=== PATIENT | female | born 1950 | race Two or more races ===

== ENCOUNTER 2021-09-11 20:42 | Inpatient (IN) | payer OTHER ==
[~2021-09-11] VITALS: Ht 172.7 cm; Wt 79.1 kg
[2021-09-11] MEDS ORDERED: MORPHINE SULFATE 4 MG/ML SYR/VIAL IV ONE (22:45)
[2021-09-11 23:49] LABS: Basophils # (auto) 0 10 ^3/uL (0-0.2); Eosinophils # (auto) 0.3 10 ^3/uL (0-0.8); Neutrophils # (auto) 3.6 10 ^3/uL (1.6-8.6)
[2021-09-11 23:51] LABS: Basophils % (auto) 0.5 % (0.0-2.0); Eosinophils % (auto) 4.5 % (0.0-7.0); Hematocrit 32.8 % (36.0-46.0); Hemoglobin 10.9 g/dL (12.2-16.2); Lymphocytes % (auto) 39.7 % (10.0-50.0); Mean Corpuscular Hgb Conc. 33.4 g/dL (32.0-36.0); Mean Corpuscular Volume 80.8 fL (80.0-100.0); Monocytes # (auto) 0.5 10 ^3/uL (0-1.3); Monocytes % (auto) 7.1 % (0.0-12.0); Neutrophils % (auto) 48.2 % (37.0-80.0); Nucleated Red Blood Cells % 0.1 %; Red Blood Cells 4.05 10^6/uL (4.0-5.20); Red Cell Distribution Width 15.8 % (11.8-14.3); White Blood Cell 7.5 10^3/uL (4.4-10.8)
[2021-09-12 00:08] LABS: Albumin 2.8 g/dL (3.4-5.0); BUN/Creatinine Ratio 31.5; Calcium 9.1 mg/dL (8.5-10.1)
[2021-09-12 00:13] LABS: Bilirubin, Total 0.2 mg/dL (0.2-1.0); Total Protein 6.5 g/dL (6.4-8.2)
[2021-09-12] MEDS ORDERED: MORPHINE SULFATE INJECTION 2 MG/ML SYRG IV PRN (05:00)
[2021-09-12] MEDS ORDERED: NITROGLYCERIN 0.4 MG SL TAB SL PRN (05:00)
[2021-09-12] MEDS: SODIUM CHLORIDE 0.9% 1,000 ML IV SCH ×2 (05:28→22:24)
[2021-09-12] MEDS ORDERED: DEXTROSE (50%) 50ML SYRG IV PRN (07:45)
[2021-09-12 08:00] VITALS: BP 130/58
[2021-09-12] MEDS ORDERED: METO25TA93 PO (08:25)
[2021-09-12] MEDS ORDERED: INSLISPI SC (08:27)
[2021-09-12] MEDS ORDERED: ATOR10TA PO (08:28)
[2021-09-12] MEDS ORDERED: INSLANTI SC (08:29)
[2021-09-12] MEDS ORDERED: ENOXAPARIN SOD 40 MG/0.4 ML SYRINGE SC SCH (10:00)
[2021-09-12] MEDS: ACCU-CHEK COMFORT CURVE STRIP VI SCH ×3 (11:47→22:29)
[2021-09-12 12:00] VITALS: BP_SYST 110; BP_SYST 127; BP_SYST 97; BP_DIAS 50; BP_DIAS 60; BP_DIAS 67
[2021-09-12] MEDS: InsuLIN REG 1unit/0.01ml Soln (100units/ml) SC SCH ×2 (12:05→17:35)
[2021-09-12 16:00] VITALS: BP 121/56
[2021-09-12 19:35] VITALS: BP 139/66
[2021-09-12] MEDS ORDERED: LORazepam 2MG/ML-1ML VIAL IV PRN (20:00)
[2021-09-12 21:12] VITALS: BP 119/50
[2021-09-12] MEDS ORDERED: INSULIN LANTUS (GLARGINE) 1 /0.01ml (100units/ml) SC SCH ×2 (22:00)
[2021-09-12] MEDS ORDERED: ATORVASTATIN 20 MG TAB PO SCH (22:00)
[2021-09-12] MEDS ORDERED: InsuLIN REG 1unit/0.01ml Soln (100units/ml) SC SCH (22:00)
[2021-09-12] MEDS: ENOXAPARIN SOD 80 MG/0.8ML SYRINGE SC SCH (22:30)
[2021-09-13] VITALS (12 sets, daily range): BP systolic 101–145; BP diastolic 42–63
[2021-09-13 05:58] LABS: Basophils # (auto) 0 10 ^3/uL (0-0.2); Eosinophils # (auto) 0.3 10 ^3/uL (0-0.8); Hemoglobin 10.8 g/dL (12.2-16.2); Lymphocytes # (auto) 2.1 10 ^3/uL (0.4-5.4); Mean Corpuscular Hemoglobin 26.6 pg (28.0-32.0); Monocytes # (auto) 0.4 10 ^3/uL (0-1.3); Nucleated Red Blood Cells % 0.1 %; Red Blood Cells 4.06 10^6/uL (4.0-5.20)
[2021-09-13 06:00] LABS: Basophils % (auto) 0.5 % (0.0-2.0); Eosinophils % (auto) 5.9 % (0.0-7.0); Hematocrit 32.5 % (36.0-46.0); Lymphocytes % (auto) 39.3 % (10.0-50.0); Mean Corpuscular Hgb Conc. 33.1 g/dL (32.0-36.0); Mean Corpuscular Volume 80.2 fL (80.0-100.0); Monocytes % (auto) 7.6 % (0.0-12.0); Neutrophils # (auto) 2.5 10 ^3/uL (1.6-8.6); Neutrophils % (auto) 46.7 % (37.0-80.0); Red Cell Distribution Width 15.6 % (11.8-14.3); White Blood Cell 5.3 10^3/uL (4.4-10.8)
[2021-09-13 06:09] LABS: Albumin 2.9 g/dL (3.4-5.0); Calcium 9.3 mg/dL (8.5-10.1); Potassium 4.6 mmol/L (3.5-5.1)
[2021-09-13 06:12] LABS: Bilirubin, Total 0.3 mg/dL (0.2-1.0); Total Protein 6.4 g/dL (6.4-8.2)
[2021-09-13] MEDS: ACCU-CHEK COMFORT CURVE STRIP VI SCH ×3 (06:35→17:00)
[2021-09-13] MEDS: InsuLIN REG 1unit/0.01ml Soln (100units/ml) SC SCH ×3 (06:35→17:00)
[2021-09-13] MEDS: ENOXAPARIN SOD 80 MG/0.8ML SYRINGE SC SCH (09:18)
[2021-09-13 09:44] LABS: INR 1.06 (0.9-1.15); Partial Thromboplastin Time 26.1 sec (23.6-33.0)
[2021-09-13] MEDS ORDERED: ASPirin 81 mg TAB PO SCH (10:00)
[2021-09-13] MEDS ORDERED: MIDAZOLAM HCL 2MG/2ML 2ml VIAL (1mg/ml) ONE (13:50)
[2021-09-13] MEDS ORDERED: VERAPAMIL 2.5MG/ML INJ 2ML VIAL IV ONE (13:50)
[2021-09-13] MEDS ORDERED: fentaNYL CITRATE 100 MCG/2 ML VL ONE (13:50)
[2021-09-13] MEDS ORDERED: LIDOCAINE 2%HCL (LOCAL ANESTH.) INJ 10ml MDV ONE (13:51)
[2021-09-13] MEDS ORDERED: HEPARIN SODIUM (PORCINE) 5000 UNITS/ML 1ML VIAL ONE (13:51)
[2021-09-13] MEDS ORDERED: IODIXANOL 320MG/ML 100ML BTL IV ONE ×2 (13:52→14:18)
[2021-09-13] MEDS ORDERED: SODIUM CHL 0.9% 0 ML ONE (14:10)
[2021-09-13] MEDS ORDERED: ANGIOMAX 250 MG VIAL IV ONE (14:10)
[2021-09-13] MEDS: SODIUM CHLORIDE 0.9% 1,000 ML IV SCH (14:20)
[2021-09-13] MEDS ORDERED: PANT40TA2 PO (16:13)
== END 2021-09-13 19:00 | disposition home or self-care (01) | DRG 287 ==
LOC: EDBD 20:42 → ER 20:45 → TELE 09-12 04:55 → TELE-WESTW 09-12 05:57
PROVIDERS: ADMIT Internal Medicine; ATTEND Hospitalist
PROC: 4A023N7 Measurement of Cardiac Sampling and Pressure, Left Heart, Percutaneous Approach (ICD-10-PCS; principal; 2021-09-13)
PROC: B211YZZ Fluoroscopy of Multiple Coronary Arteries using Other Contrast (ICD-10-PCS; 2021-09-13)
PROC: B215YZZ Fluoroscopy of Left Heart using Other Contrast (ICD-10-PCS; 2021-09-13)
DX: R07.9 Chest pain, unspecified (principal); D64.9 Anemia, unspecified; R55 Syncope and collapse; E88.09 Other disorders of plasma-protein metabolism, not elsewhere classified; E11.9 Type 2 diabetes mellitus without complications; E78.5 Hyperlipidemia, unspecified; F17.200 Nicotine dependence, unspecified, uncomplicated; I10 Essential (primary) hypertension; Z20.822 Contact with and (suspected) exposure to COVID-19; R42 Dizziness and giddiness; Z79.4 Long term (current) use of insulin; Z82.49 Family history of ischemic heart disease and other diseases of the circulatory system; Z83.3 Family history of diabetes mellitus; Z88.5 Allergy status to narcotic agent
CPT/HCPCS: 36415; 70450; 71045; 80053; 82962; 83880; 84484; 85025; 85610; 85730; 87426; 93306; 93458; 95819; 96374; 99152; G0378; J1815; J2001; J2250; Q9967